=== PATIENT | female | born 2000 ===

== ENCOUNTER 2021-07-04 10:35 | Outpatient (CLI) | payer OTHER | END 2021-07-04 12:00 | disposition home or self-care (01) | LOC: PRENATAL 10:35 | PROVIDERS: ATTEND Obstetrics & Gynecology Maternal & Fetal Medicine | DX: O35.0XX1 Maternal care for (suspected) central nervous system malformation in fetus, fetus 1 (principal); O35.3XX1 Maternal care for (suspected) damage to fetus from viral disease in mother, fetus 1; O98.512 Other viral diseases complicating pregnancy, second trimester; Z36.89 Encounter for other specified antenatal screening; Z3A.22 22 weeks gestation of pregnancy ==

== ENCOUNTER 2021-10-10 13:31 | Outpatient (CLI) | payer OTHER | END 2021-10-10 14:46 | disposition home or self-care (01) | LOC: PRENATAL 13:31 | PROVIDERS: ATTEND Obstetrics & Gynecology Maternal & Fetal Medicine | DX: O26.843 Uterine size-date discrepancy, third trimester (principal); O36.8131 Decreased fetal movements, third trimester, fetus 1; O98.913 Unspecified maternal infectious and parasitic disease complicating pregnancy, third trimester; O35.0XX1 Maternal care for (suspected) central nervous system malformation in fetus, fetus 1; Z36.89 Encounter for other specified antenatal screening; Z3A.36 36 weeks gestation of pregnancy ==